=== PATIENT | female | born 1950 | race Caucasian/White ===

== ENCOUNTER 2017-09-24 18:21 | Inpatient (IN) ==
[2017-09-24] MEDS ORDERED: SODIUM CHLORIDE 0.9% 1,000 ML IV STA (18:45)
[2017-09-24 19:04] LABS: Basophils # 0.1 10*3/uL (0.0-0.2); Basophils % 0.5 % (0.0-0.8); Eosinophils % 0.1 % (0.00-10.9); Hematocrit 45.5 VOL% (35.7-47.0); Hemoglobin 15.6 GM/DL (12.0-16.0); Immature Granulocytes % 0.3 %; Immature Granulocytes Absolute 0.03 #; Lymphocytes # 0.8 10*3/uL (1.4-4.0); Lymphocytes % 7.8 % (21.3-54.2); Mean Corpuscular HGB Conc 34.3 GM/DL (32-36); Mean Corpuscular Hemoglobin 30 PG (27-34); Mean Corpuscular Volume 86.2 FL (87-102); Mean Platelet Volume 12.3 FL (9.6-12.0); Monocytes % 9.8 % (1.7-12.7); Neutrophils # 8.1 10*3/uL (1.4-7.4); Neutrophils % 81.5 % (38.7-73.9); Platelet Count 156 T/CUMM (130-400); Red Blood Count 5.28 MC/CUMM (3.8-5.5); Red Cell Distribution Width 13.2 % (9.3-17.3)
[2017-09-24 19:13] LABS: PT Patient Result 10.9 SECS; Partial Thromboplastin Time 23.8 SECS (0-40)
[2017-09-24 19:31] LABS: Ammonia < 10 UMOL/L (11-32)
[2017-09-24 19:41] LABS: Alanine Aminotransferase 38 U/L (13-56); Alkaline Phosphatase 118 U/L (45-117); Aspartate Amino Transferase 68 U/L (0-37); Calcium 9.1 MG/DL (8.5-10.1)
[2017-09-24 19:42] LABS: Blood Urea Nitrogen 15 MG/DL (7-18); CKMB % 2.2 %; Glucose 187 MG/DL (74-106); Osmolality,Calculated 284.4 MOS/KG (273-304); Potassium 3.1 MMOL/L (3.5-5.1); Sodium 140 MMOL/L (136-145); Total Protein 7.6 G/DL (6.4-8.3)
[2017-09-24 19:45] LABS: Acetaminophen < 2.0 UG/ML (10-30); Salicylate < 2.8 MG/DL (2.8-20)
[2017-09-24] MEDS ORDERED: NITROGLYCERIN 2% OINT 1 INCH/GM PACK TOP STA (19:49)
[2017-09-24] MEDS ORDERED: NITROGLYCERIN 2% OINT 1 INCH/GM PACK TOP ONE (19:55)
[2017-09-24] MEDS ORDERED: hydrALAZINE 20 MG/1 ML VIAL ONE (20:35)
[2017-09-24 20:36] LABS: Platelet Estimate Normal
[2017-09-24] MEDS ORDERED: hydrALAZINE 20 MG/1 ML VIAL IV STA (20:36)
[2017-09-24] MEDS ORDERED: METOCLOPRAMIDE 10 MG/2 ML VIAL IV STA (20:43)
[2017-09-24] MEDS ORDERED: ONDANSETRON 4 MG/2 ML VIAL IV STA (20:43)
[2017-09-24] MEDS ORDERED: ONDANSETRON 4 MG/2 ML VIAL ONE (20:44)
[2017-09-24] MEDS ORDERED: METOCLOPRAMIDE 10 MG/2 ML VIAL ONE (20:45)
[2017-09-24] MEDS ORDERED: PANTOPRAZOLE 40 MG VIAL IV STA (20:51)
[2017-09-24] MEDS ORDERED: LORazepam 2 MG/1 ML VIAL ONE (21:01)
[2017-09-24] MEDS ORDERED: LORazepam 2 MG/1 ML VIAL IV STA (21:12)
[2017-09-24 21:13] LABS: Apearance,Urine Slightly Hazy (Clear); Bacteria,Urine Many /HPF (Few); Bilirubin,Urine Negative (Negative); Blood, Urine Moderate mg/dL (Negative); Glucose,Urine (UA) 50 mg/dL (Negative); Hyaline Casts,Urine 4 /LPF (0-3); Ketones,Urine 80 mg/dL (Negative); Mucus,Urine Occasional /LPF (Occasional); Nitrite,Urine Negative (Negative); Protein,Urine >=500 MG/DL; Urine Color Amber (Yellow); Urine Specific Gravity 1.027 (1.001-1.035); Urine Urobilinogen < 2.0 EU/DL (0.2-1.0)
[2017-09-24 21:17] LABS: Barbiturates Screen,Urine Negative (Negative); Benzodiazepines Screen,Urine Negative (Negative); Cannabinoid Screen,Urine Negative (Negative); Opiate Screen,Urine Negative (Negative); Phencyclidine Screen,Urine Negative (Negative)
[2017-09-24] MEDS ORDERED: PANTOPRAZOLE 40 MG VIAL IV ONE (21:19)
[2017-09-24] MEDS ORDERED: ETOMIDATE 20 MG/10 ML VIAL IV ONE ×2 (21:30→23:56)
[2017-09-24] MEDS ORDERED: VECURONIUM 10 MG VIAL IV ONE ×2 (21:51→21:53)
[2017-09-24] MEDS ORDERED: PROPOFOL 1,000 MG/100 ML BOTTLE IV ONE (21:51)
[2017-09-24] MEDS ORDERED: PROPOFOL 1,000 MG/100 ML BOTTLE IV SCH ×2 (22:00→23:45)
[2017-09-24] MEDS ORDERED: niCARdipine INJ 25 MG in SODIUM CHLORIDE 0.9% 240 ML IV SCH (22:00)
[2017-09-24] MEDS ORDERED: THIAMINE INJ 100 MG, FOLIC ACID INJ 1 MG, MULTIVITAMIN INJ 10 ML in DEXTROSE 5% NACL 0.... IV SCH (22:00)
[2017-09-24] MEDS ORDERED: METOPROLOL TARTRATE 5 MG/5 ML VIAL IV ONE ×2 (22:06→23:18)
[2017-09-24] MEDS: METOPROLOL TARTRATE 5 MG/5 ML VIAL IV SCH ×2 (22:07→23:18)
[2017-09-24 22:44] LABS: ABG Base Excess -10.8 MMOL/L (-2.5-2.5); ABG HCO3 16.2 MMOL/L (20-26); ABG Oxygen Saturation 98.3 % (95-100); ABG PCO2 52.2 MM HG (35-48); ABG TCO2 16.7 MMOL/L (23-27); Allen Test Positive; Pt O2 Delivery Device Ventilator
[2017-09-24 22:46] LABS: ABG PH 7.168 (7.35-7.45)
[2017-09-24 22:48] LABS: Glucose Heart Surgery 426 MG/DL (74-106); Hematocrit Heart Surgery 48.8 PERCENT (37-47); Hemoglobin Heart Surgery 15.9 G/DL (12.0-16.0); Potassium Heart/CVR 2.9 MMOL/L (3.5-5.1)
[2017-09-24] MEDS ORDERED: HEPARIN DRIP 25,000 UNITS/500 ML PREMIX IV SCH (23:00)
[2017-09-24 23:28] LABS: INR 1.1; PT Patient Result 11.3 SECS; Partial Thromboplastin Time 26.9 SECS (0-40)
[2017-09-24 23:48] LABS: CKMB % 3.5 %
[2017-09-24 23:53] LABS: Troponin I Only 11.7 NG/ML (0.00-0.045)
[2017-09-24] MEDS ORDERED: SUCCINYLCHOLINE 200 MG/10 ML VIAL ONE (23:56)
[2017-09-25] MEDS ORDERED: HEPARIN 5,000 UNIT/1 ML VIAL IV ONE (00:03)
[2017-09-25] MEDS ORDERED: SODIUM CHLORIDE 0.9% 1,000 ML IV ONE (00:14)
[2017-09-25] MEDS: POTASSIUM CHLORIDE RIDER 10 MEQ in PREMIX 1 EACH IV PRN (00:15)
[2017-09-25] MEDS: LEVOFLOXACIN INJ 750 MG in PREMIX 1 EACH IV SCH ×2 (00:20→23:47)
[2017-09-25] MEDS ORDERED: DEXTROSE 50% 25 GM/50 ML VIAL IV PRN (00:22)
[2017-09-25] MEDS ORDERED: GLUCAGON 1 MG VIAL IM PRN (00:22)
[2017-09-25] MEDS ORDERED: MORPHINE 2 MG/1 ML SYRINGE ONE (00:22)
[2017-09-25] MEDS: MORPHINE 2 MG/1 ML SYRINGE IV PRN (00:28)
[2017-09-25] MEDS: PANTOPRAZOLE 40 MG VIAL IV SCH ×3 (00:29→21:26)
[2017-09-25] MEDS: INSULIN REGULAR 100 UNIT/ML SUBCUT SCH ×7 (00:30→22:32)
[2017-09-25] MEDS: DILTIAZEM INJ 100 MG in SODIUM CHLORIDE 0.9% 100 ML IV SCH ×2 (01:08→23:38)
[2017-09-25] MEDS: METOPROLOL TARTRATE 5 MG/5 ML VIAL IV SCH ×2 (01:08→01:39)
[2017-09-25] MEDS ORDERED: SODIUM CHLORIDE 0.9% 500 ML IV SCH (01:40)
[2017-09-25] MEDS ORDERED: DOPamine 800 MG/250 ML PREMIX IV SCH (02:00)
[2017-09-25] MEDS ORDERED: POTASSIUM CHLORIDE 20 MEQ TABLET PO ONE (02:09)
[2017-09-25 02:12] LABS: ABG Base Excess -4.6 MMOL/L (-2.5-2.5); ABG HCO3 20.7 MMOL/L (20-26); ABG Oxygen Saturation 99.8 % (95-100); ABG TCO2 17.8 MMOL/L (23-27)
[2017-09-25] MEDS ORDERED: NOREPINEPHRINE 4 MG/4 ML VIAL IV ONE (02:19)
[2017-09-25] MEDS: MIDAZOLAM 100 MG in SODIUM CHLORIDE 0.9% 80 ML IV SCH ×2 (02:28→13:09)
[2017-09-25 02:49] LABS: Basophils % 0.2 % (0.0-0.8); Hematocrit 43.3 VOL% (35.7-47.0); Hemoglobin 14.4 GM/DL (12.0-16.0); Immature Granulocytes % 0.7 %; Immature Granulocytes Absolute 0.12 #; Lymphocytes # 2.1 10*3/uL (1.4-4.0); Lymphocytes % 11.7 % (21.3-54.2); Mean Corpuscular HGB Conc 33.3 GM/DL (32-36); Mean Corpuscular Hemoglobin 30 PG (27-34); Mean Corpuscular Volume 89.1 FL (87-102); Mean Platelet Volume 12.3 FL (9.6-12.0); Monocytes # 1.9 10*3/uL (0.11-0.8); Monocytes % 10.5 % (1.7-12.7); Neutrophils # 13.9 10*3/uL (1.4-7.4); Neutrophils % 76.9 % (38.7-73.9); Platelet Count 195 T/CUMM (130-400); Red Blood Count 4.86 MC/CUMM (3.8-5.5); Red Cell Distribution Width 13.4 % (9.3-17.3); White Blood Count 18.1 T/CUMM (4-12)
[2017-09-25 03:05] LABS: Lactic Acid 7.1 MMOL/L (0.4-2.0)
[2017-09-25] MEDS: SODIUM CHLORIDE 0.9% 1,000 ML IV SCH ×3 (03:07→18:37)
[2017-09-25 03:28] LABS: ABG Base Excess -2.5 MMOL/L (-2.5-2.5); ABG HCO3 21.4 MMOL/L (20-26); ABG Oxygen Saturation 95.9 % (95-100); ABG PCO2 34.5 MM HG (35-48); ABG PO2 79.8 MM HG (80-95); ABG TCO2 22.4 MMOL/L (23-27); Allen Test Positive; Pt O2 Delivery Device Ventilator
[2017-09-25 03:38] LABS: Calcium 8.5 MG/DL (8.5-10.1); Magnesium 1.9 MG/DL (1.8-2.4); Osmolality,Calculated 292.1 MOS/KG (273-304); Potassium 3.6 MMOL/L (3.5-5.1)
[2017-09-25 03:40] LABS: CKMB % 3.2 %
[2017-09-25 03:42] LABS: Troponin I Only 19.5 NG/ML (0.00-0.045)
[2017-09-25] MEDS: fentaNYL INJ 1,250 MCG in SODIUM CHLORIDE 0.9% 225 ML IV SCH (04:01)
[2017-09-25 07:40] LABS: CKMB % 2.5 %
[2017-09-25 07:50] LABS: Troponin I Only 24.6 NG/ML (0.00-0.045)
[2017-09-25 09:09] LABS: Risk Ratio 6.19; VLDL CHOLESTEROL 40.6 MG/DL
[2017-09-25] MEDS: NOREPINEPHRINE 8 MG in SODIUM CHLORIDE 0.9% 242 ML IV SCH (09:32)
[2017-09-25 10:12] LABS: Albumin 2.9 G/DL (3.4-5.0); Bilirubin,Total 0.4 MG/DL (0.2-1.0); Calcium 8.1 MG/DL (8.5-10.1); Osmolality,Calculated 290.7 MOS/KG (273-304); Potassium 2.8 MMOL/L (3.5-5.1); Total Protein 6.2 G/DL (6.4-8.3)
[2017-09-25] MEDS: ASPIRIN CHEW 81 MG TABLET PO SCH (12:18)
[2017-09-26] MEDS: NOREPINEPHRINE 8 MG in SODIUM CHLORIDE 0.9% 242 ML IV SCH (01:31)
[2017-09-26] MEDS: INSULIN REGULAR 100 UNIT/ML SUBCUT SCH ×5 (02:12→18:21)
[2017-09-26] MEDS: SODIUM CHLORIDE 0.9% 1,000 ML IV SCH (02:16)
[2017-09-26] MEDS: MIDAZOLAM 100 MG in SODIUM CHLORIDE 0.9% 80 ML IV SCH ×2 (02:17→17:59)
[2017-09-26 03:43] LABS: ABG Base Excess -3.9 MMOL/L (-2.5-2.5); ABG HCO3 19.6 MMOL/L (20-26); ABG Oxygen Saturation 97.8 % (95-100); ABG PCO2 31.7 MM HG (35-48); ABG PH 7.409 (7.35-7.45); ABG PO2 105.3 MM HG (80-95); ABG TCO2 20.6 MMOL/L (23-27); Allen Test Positive; Pt O2 Delivery Device Ventilator
[2017-09-26 05:40] LABS: Basophils % 0.2 % (0.0-0.8); Eosinophils % 0.1 % (0.00-10.9); Hematocrit 40.8 VOL% (35.7-47.0); Hemoglobin 12.9 GM/DL (12.0-16.0); Immature Granulocytes % 0.4 %; Immature Granulocytes Absolute 0.06 #; Lymphocytes # 3.9 10*3/uL (1.4-4.0); Lymphocytes % 28.3 % (21.3-54.2); Mean Corpuscular HGB Conc 31.6 GM/DL (32-36); Mean Corpuscular Hemoglobin 30 PG (27-34); Mean Corpuscular Volume 93.6 FL (87-102); Mean Platelet Volume 12.9 FL (9.6-12.0); Monocytes # 1.5 10*3/uL (0.11-0.8); Monocytes % 10.6 % (1.7-12.7); NRBC # 0.02 10*3/uL; Neutrophils # 8.4 10*3/uL (1.4-7.4); Neutrophils % 60.4 % (38.7-73.9); Platelet Count 153 T/CUMM (130-400); Red Blood Count 4.36 MC/CUMM (3.8-5.5); Red Cell Distribution Width 14.4 % (9.3-17.3); White Blood Count 13.9 T/CUMM (4-12)
[2017-09-26 05:52] LABS: Ovalocytes 1+; Platelet Estimate Normal
[2017-09-26 06:21] LABS: Albumin 1.9 G/DL (3.4-5.0); Bilirubin,Total 1.2 MG/DL (0.2-1.0); Calcium 6.5 MG/DL (8.5-10.1); Osmolality,Calculated 292.3 MOS/KG (273-304); Total Protein 4.5 G/DL (6.4-8.3)
[2017-09-26 06:32] LABS: Potassium 2.5 MMOL/L (3.5-5.1)
[2017-09-26] MEDS ORDERED: POTASSIUM CHLORIDE 20 MEQ TABLET PO ONE ×2 (06:37→09:11)
[2017-09-26] MEDS ORDERED: CALCIUM GLUCONATE 2,000 MG in SODIUM CHLORIDE 0.9% 100 ML IV ONE (06:38)
[2017-09-26] MEDS: fentaNYL INJ 1,250 MCG in SODIUM CHLORIDE 0.9% 225 ML IV SCH ×2 (08:45→17:58)
[2017-09-26] MEDS: ASPIRIN CHEW 81 MG TABLET PO SCH (09:17)
[2017-09-26] MEDS: PANTOPRAZOLE 40 MG VIAL IV SCH ×2 (09:17→21:19)
[2017-09-26] MEDS: DEXTROSE 5% 1,000 ML IV SCH ×2 (09:33→21:19)
[2017-09-26 13:44] LABS: Free T4 (Free Thyroxine) 1.03 NG/DL (0.76-1.46); Thyroid Stimulating Hormone 0.337 uIU/ml (0.358-3.74)
[2017-09-26 21:01] LABS: CKMB % 1.3 %; Troponin I Only 7.44 NG/ML (0.00-0.045)
[2017-09-27] MEDS: DILTIAZEM INJ 100 MG in SODIUM CHLORIDE 0.9% 100 ML IV SCH (00:24)
[2017-09-27] MEDS: LEVOFLOXACIN INJ 750 MG in PREMIX 1 EACH IV SCH (00:33)
[2017-09-27] MEDS: INSULIN REGULAR 100 UNIT/ML SUBCUT SCH ×4 (00:39→18:56)
[2017-09-27] MEDS: cefTRIAXone 2,000 MG in SYRINGE 1 EACH IV SCH (02:23)
[2017-09-27] MEDS: MIDAZOLAM 100 MG in SODIUM CHLORIDE 0.9% 80 ML IV SCH (02:24)
[2017-09-27] MEDS: NOREPINEPHRINE 8 MG in SODIUM CHLORIDE 0.9% 242 ML IV SCH (02:24)
[2017-09-27 03:14] LABS: Allen Test Positive; Pt O2 Delivery Device Ventilator
[2017-09-27 03:15] LABS: ABG Base Excess -0.9 MMOL/L (-2.5-2.5); ABG HCO3 23.1 MMOL/L (20-26); ABG Oxygen Saturation 98.3 % (95-100); ABG PCO2 36.5 MM HG (35-48); ABG PO2 117.6 MM HG (80-95); ABG TCO2 24.3 MMOL/L (23-27)
[2017-09-27] MEDS: fentaNYL INJ 1,250 MCG in SODIUM CHLORIDE 0.9% 225 ML IV SCH (03:21)
[2017-09-27 05:20] LABS: Bilirubin,Total 0.4 MG/DL (0.2-1.0); Calcium 7.4 MG/DL (8.5-10.1); Osmolality,Calculated 280.4 MOS/KG (273-304); Potassium 3.4 MMOL/L (3.5-5.1); Total Protein 4.6 G/DL (6.4-8.3)
[2017-09-27] MEDS: DEXTROSE 5% 1,000 ML IV SCH ×3 (05:35→15:55)
[2017-09-27] MEDS: MORPHINE 2 MG/1 ML SYRINGE IV PRN ×2 (06:22→16:19)
[2017-09-27 08:35] LABS: Pt O2 Delivery Device Ventilator
[2017-09-27 08:36] LABS: ABG HCO3 24.4 MMOL/L (20-26); ABG Oxygen Saturation 98.9 % (95-100); ABG PCO2 39.7 MM HG (35-48); ABG PH 7.401 (7.35-7.45); ABG TCO2 21.9 MMOL/L (23-27)
[2017-09-27] MEDS: ASPIRIN CHEW 81 MG TABLET PO SCH (08:49)
[2017-09-27] MEDS: PANTOPRAZOLE 40 MG VIAL IV SCH ×2 (08:49→21:35)
[2017-09-27] MEDS: HALOPERIDOL 5 MG/ML AMP IV SCH ×2 (08:50→21:33)
[2017-09-27] MEDS ORDERED: POTASSIUM CHLORIDE 20 MEQ TABLET PO ONE (08:51)
[2017-09-27 10:36] LABS: Pt O2 Delivery Device Ventilator
[2017-09-27 10:38] LABS: ABG HCO3 23.6 MMOL/L (20-26); ABG Oxygen Saturation 98.8 % (95-100); ABG PCO2 40.5 MM HG (35-48); ABG TCO2 21.2 MMOL/L (23-27)
[2017-09-28] MEDS: MORPHINE 2 MG/1 ML SYRINGE IV PRN (00:30)
[2017-09-28] MEDS: DILTIAZEM INJ 100 MG in SODIUM CHLORIDE 0.9% 100 ML IV SCH ×2 (01:01→22:59)
[2017-09-28] MEDS: INSULIN REGULAR 100 UNIT/ML SUBCUT SCH ×4 (01:01→17:15)
[2017-09-28] MEDS: LEVOFLOXACIN INJ 750 MG in PREMIX 1 EACH IV SCH (01:06)
[2017-09-28] MEDS: DEXTROSE 5% 1,000 ML IV SCH ×5 (01:13→22:59)
[2017-09-28] MEDS: cefTRIAXone 2,000 MG in SYRINGE 1 EACH IV SCH (01:36)
[2017-09-28] MEDS: MIDAZOLAM 100 MG in SODIUM CHLORIDE 0.9% 80 ML IV SCH ×2 (03:53→07:26)
[2017-09-28] MEDS: fentaNYL INJ 1,250 MCG in SODIUM CHLORIDE 0.9% 225 ML IV SCH ×2 (03:54→07:26)
[2017-09-28] MEDS: NOREPINEPHRINE 8 MG in SODIUM CHLORIDE 0.9% 242 ML IV SCH (03:54)
[2017-09-28 04:15] LABS: ABG Base Excess 1.4 MMOL/L (-2.5-2.5); ABG HCO3 26.3 MMOL/L (20-26); ABG Oxygen Saturation 98.1 % (95-100); ABG PCO2 42.6 MM HG (35-48); ABG PH 7.408 (7.35-7.45); ABG TCO2 27.6 MMOL/L (23-27); Allen Test Positive; Pt O2 Delivery Device Ventilator
[2017-09-28 05:06] LABS: Calcium 7.9 MG/DL (8.5-10.1); Osmolality,Calculated 281.1 MOS/KG (273-304); Potassium 3.7 MMOL/L (3.5-5.1)
[2017-09-28] MEDS: ASPIRIN CHEW 81 MG TABLET PO SCH (08:08)
[2017-09-28] MEDS: PANTOPRAZOLE 40 MG VIAL IV SCH ×2 (08:10→20:14)
[2017-09-28] MEDS: HALOPERIDOL 5 MG/ML AMP IV SCH ×2 (08:12→20:13)
[2017-09-28] MEDS: METOPROLOL TARTRATE 25 MG TABLET PO SCH ×2 (17:02→20:14)
[2017-09-29] MEDS: INSULIN REGULAR 100 UNIT/ML SUBCUT SCH ×4 (00:10→18:23)
[2017-09-29] MEDS: LEVOFLOXACIN INJ 750 MG in PREMIX 1 EACH IV SCH (00:10)
[2017-09-29] MEDS: cefTRIAXone 2,000 MG in SYRINGE 1 EACH IV SCH (02:33)
[2017-09-29] MEDS: MIDAZOLAM 100 MG in SODIUM CHLORIDE 0.9% 80 ML IV SCH (02:34)
[2017-09-29] MEDS: NOREPINEPHRINE 8 MG in SODIUM CHLORIDE 0.9% 242 ML IV SCH (02:35)
[2017-09-29 03:31] LABS: Allen Test Positive; Pt O2 Delivery Device Ventilator
[2017-09-29 03:32] LABS: ABG Base Excess 3.8 MMOL/L (-2.5-2.5); ABG HCO3 27.9 MMOL/L (20-26); ABG Oxygen Saturation 97.3 % (95-100); ABG PCO2 39.9 MM HG (35-48); ABG PH 7.462 (7.35-7.45); ABG TCO2 29.1 MMOL/L (23-27)
[2017-09-29] MEDS: fentaNYL INJ 1,250 MCG in SODIUM CHLORIDE 0.9% 225 ML IV SCH (04:02)
[2017-09-29 04:05] LABS: Basophils % 0.3 % (0.0-0.8); Eosinophils % 0.7 % (0.00-10.9); Hematocrit 31.7 VOL% (35.7-47.0); Hemoglobin 10.6 GM/DL (12.0-16.0); Immature Granulocytes % 0.3 %; Immature Granulocytes Absolute 0.02 #; Lymphocytes % 32.8 % (21.3-54.2); Mean Corpuscular HGB Conc 33.4 GM/DL (32-36); Mean Corpuscular Hemoglobin 29 PG (27-34); Mean Corpuscular Volume 87.3 FL (87-102); Mean Platelet Volume 13.4 FL (9.6-12.0); Monocytes # 0.6 10*3/uL (0.11-0.8); Monocytes % 10.1 % (1.7-12.7); Neutrophils # 3.3 10*3/uL (1.4-7.4); Neutrophils % 55.8 % (38.7-73.9); Platelet Count 99 T/CUMM (130-400); Red Blood Count 3.63 MC/CUMM (3.8-5.5); Red Cell Distribution Width 13.8 % (9.3-17.3)
[2017-09-29 04:47] LABS: Calcium 7.8 MG/DL (8.5-10.1); Magnesium 1.5 MG/DL (1.8-2.4); Osmolality,Calculated 285.8 MOS/KG (273-304); Phosphorous 2.3 MG/DL (2.5-4.9); Potassium 3.4 MMOL/L (3.5-5.1); Prealbumin 8.7 MG/DL (20-40)
[2017-09-29 04:50] LABS: Eosinophils 1 % (0-10); Hypochromasia 1+; Lymphocytes 28 % (20-55); Platelet Estimate Decreased; Segmented Neutrophils 65 % (50-85); Total Cells Counted 100
[2017-09-29] MEDS: DEXTROSE 5% 1,000 ML IV SCH ×3 (06:28→19:07)
[2017-09-29] MEDS: PANTOPRAZOLE 40 MG VIAL IV SCH ×2 (08:03→20:55)
[2017-09-29] MEDS: ASPIRIN CHEW 81 MG TABLET PO SCH (08:04)
[2017-09-29] MEDS: METOPROLOL TARTRATE 25 MG TABLET PO SCH ×2 (08:04→20:57)
[2017-09-29] MEDS: HALOPERIDOL 5 MG/ML AMP IV SCH ×2 (08:04→20:53)
[2017-09-29] MEDS: POTASSIUM CHLORIDE RIDER 10 MEQ in PREMIX 1 EACH IV PRN ×3 (08:25→12:16)
[2017-09-29] MEDS ORDERED: MAGNESIUM SULF RIDER 4 GM in PREMIX 1 EACH IV ONE (08:42)
[2017-09-29] MEDS ORDERED: POTASSIUM CHLORIDE RIDER 10 MEQ in PREMIX 1 EACH IV SCH (09:00)
[2017-09-29] MEDS: POTASSIUM CHLORIDE 20 MEQ TABLET PO SCH (09:22)
[2017-09-29] MEDS: oxyCODONE/ACETAMINOPHEN 5-325 MG TABLET PO SCH ×2 (09:22→20:57)
[2017-09-29] MEDS: LORazepam 2 MG/1 ML VIAL IV PRN ×3 (09:24→21:02)
[2017-09-29] MEDS ORDERED: MAGNESIUM SULF RIDER 4 GM in PREMIX 1 EACH IV PRN (11:40)
[2017-09-29] MEDS ORDERED: MAGNESIUM SULF RIDER 2 GM in PREMIX 1 EACH IV PRN (11:40)
[2017-09-29] MEDS: PROPOFOL 1,000 MG/100 ML BOTTLE IV SCH ×2 (19:10→23:00)
[2017-09-30] MEDS: INSULIN REGULAR 100 UNIT/ML SUBCUT SCH ×5 (00:11→23:46)
[2017-09-30] MEDS: LEVOFLOXACIN INJ 750 MG in PREMIX 1 EACH IV SCH ×2 (00:12→23:26)
[2017-09-30] MEDS: DEXTROSE 5% 1,000 ML IV SCH ×5 (01:16→23:26)
[2017-09-30 09:54] LABS: Alanine Aminotransferase 56 U/L (13-56); Albumin 1.9 G/DL (3.4-5.0); Alkaline Phosphatase 70 U/L (45-117); Aspartate Amino Transferase 52 U/L (0-37); Bilirubin,Total < 0.39 MG/DL (0.2-1.0); Blood Urea Nitrogen 9 MG/DL (7-18); Calcium 7.8 MG/DL (8.5-10.1); Glucose 142 MG/DL (74-106); Potassium 3.5 MMOL/L (3.5-5.1); Sodium 143 MMOL/L (136-145); Total Protein 4.6 G/DL (6.4-8.3)
[2017-09-30 09:55] LABS: Alanine Aminotransferase 58 U/L (13-56); Albumin 1.9 G/DL (3.4-5.0); Alkaline Phosphatase 74 U/L (45-117); Aspartate Amino Transferase 54 U/L (0-37); Bilirubin,Direct < 0.100 MG/DL (0.0-0.20); Bilirubin,Indirect 0.3 MG/DL (0.0-1.0); Bilirubin,Total < 0.39 MG/DL (0.2-1.0); Total Protein 4.6 G/DL (6.4-8.3)
[2017-09-30 09:55] LABS: ABG Base Excess 5.6 MMOL/L (-2.5-2.5); ABG HCO3 30.5 MMOL/L (20-26); ABG Oxygen Saturation 96.6 % (95-100); ABG PCO2 45.9 MM HG (35-48); ABG PH 7.441 (7.35-7.45); ABG PO2 86.7 MM HG (80-95)
[2017-09-30 10:02] LABS: Basophils % 0.3 % (0.0-0.8); Eosinophils # 0.3 10*3/uL (0.0-0.87); Eosinophils % 3.4 % (0.00-10.9); Hematocrit 31.3 VOL% (35.7-47.0); Hemoglobin 10.7 GM/DL (12.0-16.0); Immature Granulocytes % 0.5 %; Immature Granulocytes Absolute 0.04 #; Lymphocytes # 2.4 10*3/uL (1.4-4.0); Lymphocytes % 27.6 % (21.3-54.2); Mean Corpuscular HGB Conc 34.2 GM/DL (32-36); Mean Corpuscular Hemoglobin 30 PG (27-34); Mean Corpuscular Volume 86.5 FL (87-102); Mean Platelet Volume 13.2 FL (9.6-12.0); Monocytes # 0.9 10*3/uL (0.11-0.8); Monocytes % 10.1 % (1.7-12.7); Neutrophils % 58.1 % (38.7-73.9); Platelet Count 106 T/CUMM (130-400); Red Blood Count 3.62 MC/CUMM (3.8-5.5); Red Cell Distribution Width 13.6 % (9.3-17.3); White Blood Count 8.6 T/CUMM (4-12)
[2017-09-30 10:14] LABS: PT Patient Result 10.7 SECS; Partial Thromboplastin Time 31.1 SECS (0-40)
[2017-09-30] MEDS: cefTRIAXone 2,000 MG in SYRINGE 1 EACH IV SCH (10:17)
[2017-09-30] MEDS: ASPIRIN CHEW 81 MG TABLET PO SCH (10:18)
[2017-09-30] MEDS: METOPROLOL TARTRATE 25 MG TABLET PO SCH ×2 (10:19→21:29)
[2017-09-30] MEDS: POTASSIUM CHLORIDE 20 MEQ TABLET PO SCH (10:19)
[2017-09-30] MEDS: HALOPERIDOL 5 MG/ML AMP IV SCH ×2 (10:19→21:28)
[2017-09-30] MEDS: oxyCODONE/ACETAMINOPHEN 5-325 MG TABLET PO SCH ×2 (10:19→21:28)
[2017-09-30] MEDS: PANTOPRAZOLE 40 MG VIAL IV SCH ×2 (10:37→21:28)
[2017-09-30 10:56] LABS: Eosinophils 2 % (0-10); Lymphocytes 34 % (20-55); Platelet Estimate Decreased; Segmented Neutrophils 59 % (50-85); Total Cells Counted 100
[2017-09-30 10:57] LABS: Hypochromasia 1+; Microcytosis 1+
[2017-09-30] MEDS: PROPOFOL 1,000 MG/100 ML BOTTLE IV SCH ×2 (16:01→21:27)
[2017-10-01] MEDS: cefTRIAXone 2,000 MG in SYRINGE 1 EACH IV SCH (02:28)
[2017-10-01 02:59] LABS: Allen Test Positive; Pt O2 Delivery Device Ventilator
[2017-10-01 03:00] LABS: ABG Base Excess 7.3 MMOL/L (-2.5-2.5); ABG HCO3 31.1 MMOL/L (20-26); ABG Oxygen Saturation 96.7 % (95-100); ABG PH 7.498 (7.35-7.45); ABG PO2 88.1 MM HG (80-95); ABG TCO2 32.4 MMOL/L (23-27)
[2017-10-01 03:52] LABS: Basophils % 0.3 % (0.0-0.8); Eosinophils # 0.4 10*3/uL (0.0-0.87); Eosinophils % 5.4 % (0.00-10.9); Hematocrit 32.5 VOL% (35.7-47.0); Hemoglobin 10.8 GM/DL (12.0-16.0); Immature Granulocytes % 0.5 %; Immature Granulocytes Absolute 0.04 #; Lymphocytes # 2.2 10*3/uL (1.4-4.0); Lymphocytes % 28.6 % (21.3-54.2); Mean Corpuscular HGB Conc 33.2 GM/DL (32-36); Mean Corpuscular Hemoglobin 29 PG (27-34); Mean Corpuscular Volume 87.8 FL (87-102); Mean Platelet Volume 13.7 FL (9.6-12.0); Monocytes # 0.8 10*3/uL (0.11-0.8); Monocytes % 9.9 % (1.7-12.7); Neutrophils # 4.3 10*3/uL (1.4-7.4); Neutrophils % 55.3 % (38.7-73.9); Platelet Count 107 T/CUMM (130-400); Red Cell Distribution Width 13.4 % (9.3-17.3); White Blood Count 7.8 T/CUMM (4-12)
[2017-10-01 04:15] LABS: Calcium 7.4 MG/DL (8.5-10.1); Magnesium 1.7 MG/DL (1.8-2.4); Osmolality,Calculated 279.4 MOS/KG (273-304); Potassium 4.4 MMOL/L (3.5-5.1)
[2017-10-01 04:37] LABS: Eosinophils 5 % (0-10); Lymphocytes 32 % (20-55); Segmented Neutrophils 57 % (50-85); Total Cells Counted 100
[2017-10-01 04:38] LABS: Platelet Estimate Adequate
[2017-10-01] MEDS: INSULIN REGULAR 100 UNIT/ML SUBCUT SCH ×3 (05:14→18:13)
[2017-10-01] MEDS: PROPOFOL 1,000 MG/100 ML BOTTLE IV SCH ×3 (05:16→17:32)
[2017-10-01] MEDS: LORazepam 2 MG/1 ML VIAL IV PRN (08:20)
[2017-10-01] MEDS: METOPROLOL TARTRATE 25 MG TABLET PO SCH ×2 (08:42→21:54)
[2017-10-01] MEDS: POTASSIUM CHLORIDE 20 MEQ TABLET PO SCH (08:42)
[2017-10-01] MEDS: oxyCODONE/ACETAMINOPHEN 5-325 MG TABLET PO SCH ×2 (08:42→21:54)
[2017-10-01] MEDS: HALOPERIDOL 5 MG/ML AMP IV SCH ×2 (08:43→21:55)
[2017-10-01] MEDS: ASPIRIN CHEW 81 MG TABLET PO SCH (08:43)
[2017-10-01] MEDS: PANTOPRAZOLE 40 MG VIAL IV SCH ×2 (08:48→21:55)
[2017-10-01] MEDS: DILTIAZEM INJ 100 MG in SODIUM CHLORIDE 0.9% 100 ML IV SCH ×2 (09:41→15:14)
[2017-10-01 10:13] LABS: ABG Base Excess 6.1 MMOL/L (-2.5-2.5); ABG HCO3 29.9 MMOL/L (20-26); ABG Oxygen Saturation 94.6 % (95-100); ABG PCO2 41.3 MM HG (35-48); ABG PH 7.473 (7.35-7.45); ABG PO2 70.6 MM HG (80-95); ABG TCO2 26.7 MMOL/L (23-27); Allen Test Positive
[2017-10-01] MEDS: DEXTROSE 5% 1,000 ML IV SCH (10:57)
[2017-10-01] MEDS: hydrALAZINE 20 MG/1 ML VIAL IV PRN (11:57)
[2017-10-01] MEDS: MORPHINE 2 MG/1 ML SYRINGE IV PRN (12:37)
[2017-10-01] MEDS: ACETAMINOPHEN 325 MG/10.15 ML UDCUP PO PRN (14:59)
[2017-10-02] MEDS: LEVOFLOXACIN INJ 750 MG in PREMIX 1 EACH IV SCH ×2 (00:22→23:57)
[2017-10-02] MEDS: INSULIN REGULAR 100 UNIT/ML SUBCUT SCH ×5 (00:23→23:56)
[2017-10-02] MEDS: DILTIAZEM INJ 100 MG in SODIUM CHLORIDE 0.9% 100 ML IV SCH ×3 (00:48→19:22)
[2017-10-02] MEDS: PROPOFOL 1,000 MG/100 ML BOTTLE IV SCH ×3 (01:18→19:20)
[2017-10-02] MEDS: cefTRIAXone 2,000 MG in SYRINGE 1 EACH IV SCH (01:49)
[2017-10-02 03:39] LABS: ABG Base Excess 5.5 MMOL/L (-2.5-2.5); ABG HCO3 29.3 MMOL/L (20-26); ABG Oxygen Saturation 97.6 % (95-100); ABG PCO2 39.4 MM HG (35-48); ABG PO2 91.7 MM HG (80-95); ABG TCO2 26.1 MMOL/L (23-27)
[2017-10-02] MEDS: LORazepam 2 MG/1 ML VIAL IV PRN ×2 (04:33→17:20)
[2017-10-02 05:43] LABS: Basophils % 0.2 % (0.0-0.8); Eosinophils # 0.4 10*3/uL (0.0-0.87); Eosinophils % 3.1 % (0.00-10.9); Hematocrit 33.5 VOL% (35.7-47.0); Hemoglobin 11.1 GM/DL (12.0-16.0); Immature Granulocytes % 0.5 %; Immature Granulocytes Absolute 0.06 #; Lymphocytes # 1.8 10*3/uL (1.4-4.0); Mean Corpuscular HGB Conc 33.1 GM/DL (32-36); Mean Corpuscular Hemoglobin 29 PG (27-34); Mean Corpuscular Volume 86.1 FL (87-102); Mean Platelet Volume 13.2 FL (9.6-12.0); Monocytes # 1.5 10*3/uL (0.11-0.8); Monocytes % 11.6 % (1.7-12.7); Neutrophils # 8.9 10*3/uL (1.4-7.4); Neutrophils % 70.6 % (38.7-73.9); Platelet Count 200 T/CUMM (130-400); Red Blood Count 3.89 MC/CUMM (3.8-5.5); Red Cell Distribution Width 13.8 % (9.3-17.3); White Blood Count 12.6 T/CUMM (4-12)
[2017-10-02 06:14] LABS: Calcium 8.1 MG/DL (8.5-10.1); Osmolality,Calculated 277.5 MOS/KG (273-304); Potassium 4.1 MMOL/L (3.5-5.1)
[2017-10-02] MEDS: hydrALAZINE 20 MG/1 ML VIAL IV PRN ×2 (06:14→19:20)
[2017-10-02 06:18] LABS: Phosphorous 3.8 MG/DL (2.5-4.9); Prealbumin 14.1 MG/DL (20-40)
[2017-10-02] MEDS: MORPHINE 2 MG/1 ML SYRINGE IV PRN ×3 (06:28→19:50)
[2017-10-02 06:58] LABS: Alanine Aminotransferase 44 U/L (13-56); Albumin 2.4 G/DL (3.4-5.0); Alkaline Phosphatase 92 U/L (45-117); Aspartate Amino Transferase 49 U/L (0-37); Bilirubin,Total < 0.39 MG/DL (0.2-1.0); Blood Urea Nitrogen 12 MG/DL (7-18); Glucose 114 MG/DL (74-106); Osmolality,Calculated 277.5 MOS/KG (273-304); Potassium 4.1 MMOL/L (3.5-5.1); Sodium 139 MMOL/L (136-145)
[2017-10-02] MEDS ORDERED: ALBUTEROL/IPRATROPIUM 3 ML NEB RESP TX PRN (08:23)
[2017-10-02] MEDS: ACETAMINOPHEN 325 MG/10.15 ML UDCUP PO PRN (09:39)
[2017-10-02] MEDS: METOPROLOL TARTRATE 25 MG TABLET PO SCH ×2 (09:40→20:46)
[2017-10-02] MEDS: POTASSIUM CHLORIDE 20 MEQ TABLET PO SCH (09:40)
[2017-10-02] MEDS: ASPIRIN CHEW 81 MG TABLET PO SCH (09:40)
[2017-10-02] MEDS: oxyCODONE/ACETAMINOPHEN 5-325 MG TABLET PO SCH ×2 (09:40→20:46)
[2017-10-02] MEDS: HALOPERIDOL 5 MG/ML AMP IV SCH ×2 (09:40→20:47)
[2017-10-02] MEDS: PANTOPRAZOLE 40 MG VIAL IV SCH ×2 (09:43→20:46)
[2017-10-02] MEDS: MONTELUKAST 10 MG TABLET PO SCH (12:00)
[2017-10-02 12:56] LABS: Apearance,Urine CLOUDY (Clear); Bilirubin,Urine Negative (Negative); Blood, Urine Large mg/dL (Negative); Glucose,Urine (UA) Negative (Negative); Hyaline Casts,Urine 2 /LPF (0-3); Ketones,Urine Negative (Negative); Mucus,Urine Occasional /LPF (Occasional); Nitrite,Urine Negative (Negative); Protein,Urine 30 MG/DL; RBC,Urine 503 /HPF (0-4); Squamous Epithelial Cell,Urine Occasional /HPF (0-10); Uric Acid Crystals,Urine Occasional /HPF (<1); Urine Color Yellow (Yellow); Urine Specific Gravity 1.029 (1.001-1.035); Urine Urobilinogen < 2.0 EU/DL (0.2-1.0); WBC,Urine 4 /HPF (0-6)
[2017-10-03] MEDS: PROPOFOL 1,000 MG/100 ML BOTTLE IV SCH ×5 (01:11→23:06)
[2017-10-03] MEDS: cefTRIAXone 2,000 MG in SYRINGE 1 EACH IV SCH (02:03)
[2017-10-03 02:44] LABS: ABG Base Excess 5.6 MMOL/L (-2.5-2.5); ABG HCO3 29.5 MMOL/L (20-26); ABG PCO2 41.1 MM HG (35-48); ABG PH 7.469 (7.35-7.45); ABG TCO2 26.3 MMOL/L (23-27)
[2017-10-03 04:50] LABS: Basophils % 0.3 % (0.0-0.8); Eosinophils # 0.4 10*3/uL (0.0-0.87); Eosinophils % 3.5 % (0.00-10.9); Hematocrit 31.8 VOL% (35.7-47.0); Hemoglobin 10.5 GM/DL (12.0-16.0); Immature Granulocytes % 0.5 %; Immature Granulocytes Absolute 0.06 #; Lymphocytes % 17.7 % (21.3-54.2); Mean Corpuscular Hemoglobin 29 PG (27-34); Mean Corpuscular Volume 87.8 FL (87-102); Mean Platelet Volume 12.6 FL (9.6-12.0); Monocytes # 1.3 10*3/uL (0.11-0.8); Monocytes % 11.7 % (1.7-12.7); Neutrophils # 7.3 10*3/uL (1.4-7.4); Neutrophils % 66.3 % (38.7-73.9); Platelet Count 214 T/CUMM (130-400); Red Blood Count 3.62 MC/CUMM (3.8-5.5)
[2017-10-03 05:21] LABS: Calcium 8.1 MG/DL (8.5-10.1); Osmolality,Calculated 281.4 MOS/KG (273-304); Potassium 4.4 MMOL/L (3.5-5.1)
[2017-10-03] MEDS: DILTIAZEM INJ 100 MG in SODIUM CHLORIDE 0.9% 100 ML IV SCH ×3 (05:33→23:04)
[2017-10-03] MEDS: INSULIN REGULAR 100 UNIT/ML SUBCUT SCH ×3 (05:34→18:25)
[2017-10-03] MEDS: MORPHINE 2 MG/1 ML SYRINGE IV PRN (06:52)
[2017-10-03] MEDS: POTASSIUM CHLORIDE 20 MEQ TABLET PO SCH (09:09)
[2017-10-03] MEDS: oxyCODONE/ACETAMINOPHEN 5-325 MG TABLET PO SCH ×2 (09:09→21:38)
[2017-10-03] MEDS: METOPROLOL TARTRATE 25 MG TABLET PO SCH ×2 (09:09→21:38)
[2017-10-03] MEDS: HALOPERIDOL 5 MG/ML AMP IV SCH ×2 (09:10→21:38)
[2017-10-03] MEDS: MONTELUKAST 10 MG TABLET PO SCH (09:10)
[2017-10-03] MEDS: ASPIRIN CHEW 81 MG TABLET PO SCH (09:10)
[2017-10-03] MEDS: PANTOPRAZOLE 40 MG VIAL IV SCH ×2 (09:10→21:38)
[2017-10-03] MEDS: LEVOFLOXACIN INJ 750 MG in PREMIX 1 EACH IV SCH (23:05)
[2017-10-04] MEDS: INSULIN REGULAR 100 UNIT/ML SUBCUT SCH ×4 (00:45→17:53)
[2017-10-04] MEDS: cefTRIAXone 2,000 MG in SYRINGE 1 EACH IV SCH (02:28)
[2017-10-04 02:42] LABS: ABG Base Excess 8.2 MMOL/L (-2.5-2.5); ABG HCO3 32.3 MMOL/L (20-26); ABG Oxygen Saturation 96.9 % (95-100); ABG PCO2 43.5 MM HG (35-48); ABG PH 7.489 (7.35-7.45); ABG PO2 93.4 MM HG (80-95); ABG TCO2 33.7 MMOL/L (23-27); Pt O2 Delivery Device Ventilator
[2017-10-04] MEDS: PROPOFOL 1,000 MG/100 ML BOTTLE IV SCH ×3 (04:57→20:36)
[2017-10-04 05:01] LABS: Basophils % 0.3 % (0.0-0.8); Eosinophils # 0.4 10*3/uL (0.0-0.87); Eosinophils % 3.9 % (0.00-10.9); Hematocrit 28.1 VOL% (35.7-47.0); Hemoglobin 9.2 GM/DL (12.0-16.0); Immature Granulocytes % 0.5 %; Immature Granulocytes Absolute 0.05 #; Lymphocytes # 1.8 10*3/uL (1.4-4.0); Lymphocytes % 17.9 % (21.3-54.2); Mean Corpuscular HGB Conc 32.7 GM/DL (32-36); Mean Corpuscular Hemoglobin 29 PG (27-34); Mean Corpuscular Volume 88.1 FL (87-102); Monocytes # 0.9 10*3/uL (0.11-0.8); Monocytes % 9.6 % (1.7-12.7); Neutrophils # 6.7 10*3/uL (1.4-7.4); Neutrophils % 67.8 % (38.7-73.9); Platelet Count 193 T/CUMM (130-400); Red Blood Count 3.19 MC/CUMM (3.8-5.5); Red Cell Distribution Width 13.8 % (9.3-17.3); White Blood Count 9.8 T/CUMM (4-12)
[2017-10-04 05:41] LABS: Osmolality,Calculated 278.5 MOS/KG (273-304); Potassium 4.2 MMOL/L (3.5-5.1)
[2017-10-04] MEDS: DILTIAZEM INJ 100 MG in SODIUM CHLORIDE 0.9% 100 ML IV SCH (06:13)
[2017-10-04] MEDS: PANTOPRAZOLE 40 MG VIAL IV SCH ×2 (08:48→20:36)
[2017-10-04] MEDS: POTASSIUM CHLORIDE 20 MEQ TABLET PO SCH (08:49)
[2017-10-04] MEDS: HALOPERIDOL 5 MG/ML AMP IV SCH ×2 (08:49→20:36)
[2017-10-04] MEDS: ASPIRIN CHEW 81 MG TABLET PO SCH (08:49)
[2017-10-04] MEDS: oxyCODONE/ACETAMINOPHEN 5-325 MG TABLET PO SCH ×2 (08:49→20:37)
[2017-10-04] MEDS: METOPROLOL TARTRATE 25 MG TABLET PO SCH ×2 (08:49→20:37)
[2017-10-04] MEDS: MONTELUKAST 10 MG TABLET PO SCH (08:49)
[2017-10-04] MEDS: LORazepam 2 MG/1 ML VIAL IV PRN (08:50)
[2017-10-05] MEDS: DILTIAZEM INJ 100 MG in SODIUM CHLORIDE 0.9% 100 ML IV SCH ×3 (00:12→23:19)
[2017-10-05] MEDS: INSULIN REGULAR 100 UNIT/ML SUBCUT SCH ×4 (00:51→17:18)
[2017-10-05] MEDS: LEVOFLOXACIN INJ 750 MG in PREMIX 1 EACH IV SCH (00:51)
[2017-10-05] MEDS: cefTRIAXone 2,000 MG in SYRINGE 1 EACH IV SCH (02:55)
[2017-10-05 03:03] LABS: ABG Base Excess 5.5 MMOL/L (-2.5-2.5); ABG HCO3 29.3 MMOL/L (20-26); ABG Oxygen Saturation 96.3 % (95-100); ABG PCO2 44.2 MM HG (35-48); ABG PH 7.445 (7.35-7.45); ABG PO2 84.2 MM HG (80-95); Pt O2 Delivery Device Ventilator
[2017-10-05] MEDS: PROPOFOL 1,000 MG/100 ML BOTTLE IV SCH ×4 (03:51→21:01)
[2017-10-05] MEDS: LORazepam 2 MG/1 ML VIAL IV PRN ×2 (04:46→08:32)
[2017-10-05] MEDS: hydrALAZINE 20 MG/1 ML VIAL IV PRN (04:47)
[2017-10-05 05:06] LABS: Basophils % 0.5 % (0.0-0.8); Eosinophils # 0.4 10*3/uL (0.0-0.87); Eosinophils % 4.4 % (0.00-10.9); Hemoglobin 9.5 GM/DL (12.0-16.0); Immature Granulocytes % 0.3 %; Immature Granulocytes Absolute 0.03 #; Lymphocytes # 1.6 10*3/uL (1.4-4.0); Lymphocytes % 17.8 % (21.3-54.2); Mean Corpuscular HGB Conc 32.8 GM/DL (32-36); Mean Corpuscular Hemoglobin 29 PG (27-34); Mean Corpuscular Volume 88.4 FL (87-102); Monocytes # 0.7 10*3/uL (0.11-0.8); Monocytes % 7.6 % (1.7-12.7); Neutrophils # 6.2 10*3/uL (1.4-7.4); Neutrophils % 69.4 % (38.7-73.9); Platelet Count 215 T/CUMM (130-400); Red Blood Count 3.28 MC/CUMM (3.8-5.5); Red Cell Distribution Width 13.4 % (9.3-17.3); White Blood Count 8.9 T/CUMM (4-12)
[2017-10-05 05:23] LABS: Calcium 8.1 MG/DL (8.5-10.1); Osmolality,Calculated 284.3 MOS/KG (273-304)
[2017-10-05] MEDS: MORPHINE 2 MG/1 ML SYRINGE IV PRN ×3 (06:34→21:30)
[2017-10-05] MEDS: PANTOPRAZOLE 40 MG VIAL IV SCH ×2 (08:31→20:24)
[2017-10-05] MEDS: POTASSIUM CHLORIDE 20 MEQ TABLET PO SCH (08:32)
[2017-10-05] MEDS: METOPROLOL TARTRATE 25 MG TABLET PO SCH ×2 (08:32→20:26)
[2017-10-05] MEDS: MONTELUKAST 10 MG TABLET PO SCH (08:32)
[2017-10-05] MEDS: HALOPERIDOL 5 MG/ML AMP IV SCH ×2 (08:32→20:24)
[2017-10-05] MEDS: ASPIRIN CHEW 81 MG TABLET PO SCH (08:32)
[2017-10-05] MEDS: oxyCODONE/ACETAMINOPHEN 5-325 MG TABLET PO SCH ×2 (08:33→20:24)
[2017-10-05] MEDS: DILTIAZEM 30 MG TABLET PO SCH ×3 (12:48→20:25)
[2017-10-06] MEDS: hydrALAZINE 20 MG/1 ML VIAL IV PRN (00:29)
[2017-10-06] MEDS: LEVOFLOXACIN INJ 750 MG in PREMIX 1 EACH IV SCH (00:29)
[2017-10-06] MEDS: INSULIN REGULAR 100 UNIT/ML SUBCUT SCH ×4 (00:52→18:26)
[2017-10-06] MEDS: MORPHINE 2 MG/1 ML SYRINGE IV PRN (02:00)
[2017-10-06] MEDS: LORazepam 2 MG/1 ML VIAL IV PRN (03:00)
[2017-10-06] MEDS: DILTIAZEM INJ 100 MG in SODIUM CHLORIDE 0.9% 100 ML IV SCH ×2 (03:00→04:07)
[2017-10-06] MEDS: cefTRIAXone 2,000 MG in SYRINGE 1 EACH IV SCH (03:17)
[2017-10-06 03:36] LABS: ABG Base Excess 5.8 MMOL/L (-2.5-2.5); ABG HCO3 29.7 MMOL/L (20-26); ABG Oxygen Saturation 98.5 % (95-100); ABG PCO2 40.5 MM HG (35-48); ABG PH 7.476 (7.35-7.45); ABG TCO2 26.9 MMOL/L (23-27); Allen Test Positive; Pt O2 Delivery Device Ventilator
[2017-10-06] MEDS: PROPOFOL 1,000 MG/100 ML BOTTLE IV SCH ×5 (04:03→21:18)
[2017-10-06 05:33] LABS: Magnesium 1.8 MG/DL (1.8-2.4); Osmolality,Calculated 277.7 MOS/KG (273-304); Potassium 3.9 MMOL/L (3.5-5.1)
[2017-10-06 05:43] LABS: Basophils # 0.1 10*3/uL (0.0-0.2); Basophils % 0.4 % (0.0-0.8); Eosinophils # 0.4 10*3/uL (0.0-0.87); Eosinophils % 2.9 % (0.00-10.9); Hematocrit 30.7 VOL% (35.7-47.0); Hemoglobin 10.1 GM/DL (12.0-16.0); Immature Granulocytes % 0.6 %; Immature Granulocytes Absolute 0.07 #; Lymphocytes # 1.8 10*3/uL (1.4-4.0); Lymphocytes % 14.4 % (21.3-54.2); Mean Corpuscular HGB Conc 32.9 GM/DL (32-36); Mean Corpuscular Hemoglobin 29 PG (27-34); Mean Corpuscular Volume 87.5 FL (87-102); Mean Platelet Volume 12.3 FL (9.6-12.0); Monocytes # 1.1 10*3/uL (0.11-0.8); Monocytes % 8.8 % (1.7-12.7); Neutrophils # 9.2 10*3/uL (1.4-7.4); Neutrophils % 72.9 % (38.7-73.9); Platelet Count 281 T/CUMM (130-400); Red Blood Count 3.51 MC/CUMM (3.8-5.5); Red Cell Distribution Width 13.6 % (9.3-17.3); White Blood Count 12.5 T/CUMM (4-12)
[2017-10-06 05:44] LABS: Magnesium 1.9 MG/DL (1.8-2.4); Prealbumin 17.7 MG/DL (20-40)
[2017-10-06] MEDS: POTASSIUM CHLORIDE RIDER 10 MEQ in PREMIX 1 EACH IV PRN (06:34)
[2017-10-06] MEDS: PANTOPRAZOLE 40 MG VIAL IV SCH ×2 (09:15→20:24)
[2017-10-06] MEDS: HALOPERIDOL 5 MG/ML AMP IV SCH ×2 (09:15→20:24)
[2017-10-06] MEDS: METOPROLOL TARTRATE 25 MG TABLET PO SCH (09:16)
[2017-10-06] MEDS: ASPIRIN CHEW 81 MG TABLET PO SCH (09:16)
[2017-10-06] MEDS: DILTIAZEM 30 MG TABLET PO SCH (09:16)
[2017-10-06] MEDS: MONTELUKAST 10 MG TABLET PO SCH (09:16)
[2017-10-06] MEDS: oxyCODONE/ACETAMINOPHEN 5-325 MG TABLET PO SCH ×2 (09:16→20:25)
[2017-10-06] MEDS: POTASSIUM CHLORIDE 20 MEQ TABLET PO SCH (09:17)
[2017-10-06] MEDS ORDERED: METOPROLOL TARTRATE 50 MG TABLET PO SCH (09:54)
[2017-10-06] MEDS: LISINOPRIL 2.5 MG TABLET PO SCH (18:26)
[2017-10-07] MEDS: LEVOFLOXACIN INJ 750 MG in PREMIX 1 EACH IV SCH ×2 (01:25→23:23)
[2017-10-07] MEDS: INSULIN REGULAR 100 UNIT/ML SUBCUT SCH ×5 (02:13→23:33)
[2017-10-07] MEDS: cefTRIAXone 2,000 MG in SYRINGE 1 EACH IV SCH (02:53)
[2017-10-07 03:12] LABS: ABG Base Excess 6.9 MMOL/L (-2.5-2.5); ABG HCO3 31.2 MMOL/L (20-26); ABG Oxygen Saturation 97.8 % (95-100); ABG PCO2 43.1 MM HG (35-48); ABG PH 7.477 (7.35-7.45); ABG TCO2 32.5 MMOL/L (23-27); Allen Test Positive; Pt O2 Delivery Device Ventilator
[2017-10-07 05:38] LABS: Basophils # 0.1 10*3/uL (0.0-0.2); Basophils % 0.5 % (0.0-0.8); Eosinophils # 0.3 10*3/uL (0.0-0.87); Eosinophils % 2.7 % (0.00-10.9); Hematocrit 29.6 VOL% (35.7-47.0); Hemoglobin 9.6 GM/DL (12.0-16.0); Immature Granulocytes % 0.5 %; Immature Granulocytes Absolute 0.05 #; Lymphocytes # 1.6 10*3/uL (1.4-4.0); Lymphocytes % 15.9 % (21.3-54.2); Mean Corpuscular HGB Conc 32.4 GM/DL (32-36); Mean Corpuscular Hemoglobin 29 PG (27-34); Mean Corpuscular Volume 88.4 FL (87-102); Mean Platelet Volume 12.3 FL (9.6-12.0); Monocytes # 0.8 10*3/uL (0.11-0.8); Monocytes % 7.8 % (1.7-12.7); Neutrophils # 7.2 10*3/uL (1.4-7.4); Neutrophils % 72.6 % (38.7-73.9); Platelet Count 260 T/CUMM (130-400); Red Blood Count 3.35 MC/CUMM (3.8-5.5); Red Cell Distribution Width 13.6 % (9.3-17.3)
[2017-10-07 06:22] LABS: Calcium 8.6 MG/DL (8.5-10.1); Osmolality,Calculated 276.7 MOS/KG (273-304); Potassium 4.1 MMOL/L (3.5-5.1)
[2017-10-07] MEDS: POTASSIUM CHLORIDE 20 MEQ TABLET PO SCH (08:57)
[2017-10-07] MEDS: MONTELUKAST 10 MG TABLET PO SCH (08:57)
[2017-10-07] MEDS: HALOPERIDOL 5 MG/ML AMP IV SCH ×2 (08:57→20:44)
[2017-10-07] MEDS: LISINOPRIL 2.5 MG TABLET PO SCH (08:57)
[2017-10-07] MEDS: oxyCODONE/ACETAMINOPHEN 5-325 MG TABLET PO SCH ×2 (08:57→20:44)
[2017-10-07] MEDS: PANTOPRAZOLE 40 MG VIAL IV SCH ×2 (08:58→20:44)
[2017-10-07] MEDS: METOPROLOL TARTRATE 100 MG TABLET PO SCH ×2 (08:58→20:44)
[2017-10-07] MEDS ORDERED: LIDOCAINE 2%/EPI 20 ML VIAL ONE (10:13)
[2017-10-07] MEDS: hydrALAZINE 20 MG/1 ML VIAL IV PRN (11:13)
[2017-10-07] MEDS: ASPIRIN CHEW 81 MG TABLET PO SCH (11:13)
[2017-10-07] MEDS: MORPHINE 2 MG/1 ML SYRINGE IV PRN (12:46)
[2017-10-07] MEDS: LORazepam 2 MG/1 ML VIAL IV PRN (12:47)
[2017-10-07] MEDS: PROPOFOL 1,000 MG/100 ML BOTTLE IV SCH (22:22)
[2017-10-08] MEDS: cefTRIAXone 2,000 MG in SYRINGE 1 EACH IV SCH (01:20)
[2017-10-08] MEDS: LORazepam 2 MG/1 ML VIAL IV PRN ×2 (01:28→16:53)
[2017-10-08 01:59] LABS: Basophils # 0.1 10*3/uL (0.0-0.2); Basophils % 0.5 % (0.0-0.8); Eosinophils # 0.3 10*3/uL (0.0-0.87); Eosinophils % 1.8 % (0.00-10.9); Hemoglobin 10.2 GM/DL (12.0-16.0); Immature Granulocytes % 0.5 %; Immature Granulocytes Absolute 0.07 #; Lymphocytes # 2.2 10*3/uL (1.4-4.0); Lymphocytes % 15.8 % (21.3-54.2); Mean Corpuscular HGB Conc 32.9 GM/DL (32-36); Mean Corpuscular Hemoglobin 29 PG (27-34); Mean Corpuscular Volume 88.3 FL (87-102); Mean Platelet Volume 12.2 FL (9.6-12.0); Monocytes # 1.4 10*3/uL (0.11-0.8); Neutrophils # 9.7 10*3/uL (1.4-7.4); Neutrophils % 71.4 % (38.7-73.9); Platelet Count 291 T/CUMM (130-400); Red Blood Count 3.51 MC/CUMM (3.8-5.5); Red Cell Distribution Width 13.9 % (9.3-17.3); White Blood Count 13.6 T/CUMM (4-12)
[2017-10-08 02:06] LABS: Calcium 8.6 MG/DL (8.5-10.1); Magnesium 1.9 MG/DL (1.8-2.4); Osmolality,Calculated 281.5 MOS/KG (273-304); Potassium 4.1 MMOL/L (3.5-5.1)
[2017-10-08 04:06] LABS: ABG Base Excess 6.5 MMOL/L (-2.5-2.5); ABG HCO3 30.5 MMOL/L (20-26); ABG Oxygen Saturation 98.1 % (95-100); ABG PCO2 41.5 MM HG (35-48); ABG PH 7.484 (7.35-7.45); ABG PO2 117.6 MM HG (80-95); ABG TCO2 31.8 MMOL/L (23-27); Allen Test Positive; Pt O2 Delivery Device Ventilator
[2017-10-08] MEDS: INSULIN REGULAR 100 UNIT/ML SUBCUT SCH ×3 (06:03→18:44)
[2017-10-08 07:45] LABS: ABG Base Excess 5.6 MMOL/L (-2.5-2.5); ABG HCO3 29.5 MMOL/L (20-26); ABG PCO2 38.1 MM HG (35-48); ABG PH 7.492 (7.35-7.45); ABG PO2 94.4 MM HG (80-95); ABG TCO2 26.4 MMOL/L (23-27)
[2017-10-08] MEDS: PANTOPRAZOLE 40 MG VIAL IV SCH ×2 (08:58→21:38)
[2017-10-08] MEDS: oxyCODONE/ACETAMINOPHEN 5-325 MG TABLET PO SCH ×2 (08:59→22:34)
[2017-10-08] MEDS: MONTELUKAST 10 MG TABLET PO SCH (08:59)
[2017-10-08] MEDS: HALOPERIDOL 5 MG/ML AMP IV SCH ×2 (08:59→22:33)
[2017-10-08] MEDS: POTASSIUM CHLORIDE 20 MEQ TABLET PO SCH (09:00)
[2017-10-08] MEDS: LISINOPRIL 2.5 MG TABLET PO SCH (09:00)
[2017-10-08] MEDS: METOPROLOL TARTRATE 100 MG TABLET PO SCH ×2 (09:00→21:38)
[2017-10-08] MEDS: ASPIRIN CHEW 81 MG TABLET PO SCH (09:00)
[2017-10-08] MEDS ORDERED: LISINOPRIL 2.5 MG TABLET PO ONE (11:17)
[2017-10-08] MEDS ORDERED: DIGOXIN 0.5 MG/2 ML AMP IV ONE ×2 (11:19→18:32)
[2017-10-08] MEDS: ENOXAPARIN 40 MG/0.4 ML SYRINGE SUBCUT SCH (12:09)
[2017-10-08] MEDS: hydrALAZINE 20 MG/1 ML VIAL IV PRN (16:05)
[2017-10-08] MEDS: MORPHINE 2 MG/1 ML SYRINGE IV PRN (17:23)
[2017-10-08] MEDS: ACETAMINOPHEN 325 MG/10.15 ML UDCUP PO PRN (18:08)
[2017-10-08] MEDS ORDERED: LABETALOL 20 MG/4 ML SYRINGE IV PRN (18:34)
[2017-10-09] MEDS ORDERED: DIGOXIN 0.5 MG/2 ML AMP IV ONE
[2017-10-09] MEDS: LEVOFLOXACIN INJ 750 MG in PREMIX 1 EACH IV SCH (00:11)
[2017-10-09] MEDS: INSULIN REGULAR 100 UNIT/ML SUBCUT SCH ×3 (00:12→12:54)
[2017-10-09] MEDS: cefTRIAXone 2,000 MG in SYRINGE 1 EACH IV SCH (02:27)
[2017-10-09] MEDS: hydrALAZINE 20 MG/1 ML VIAL IV PRN (02:28)
[2017-10-09 02:59] LABS: ABG Base Excess 4.9 MMOL/L (-2.5-2.5); ABG HCO3 28.8 MMOL/L (20-26); ABG Oxygen Saturation 95.6 % (95-100); ABG PCO2 34.9 MM HG (35-48); ABG PH 7.511 (7.35-7.45); ABG PO2 74.7 MM HG (80-95); ABG TCO2 24.9 MMOL/L (23-27); Allen Test Positive; Pt O2 Delivery Device Venturi Mask
[2017-10-09 04:45] LABS: Basophils # 0.1 10*3/uL (0.0-0.2); Basophils % 0.7 % (0.0-0.8); Eosinophils # 0.1 10*3/uL (0.0-0.87); Eosinophils % 0.4 % (0.00-10.9); Hematocrit 33.3 VOL% (35.7-47.0); Hemoglobin 10.9 GM/DL (12.0-16.0); Immature Granulocytes % 0.5 %; Immature Granulocytes Absolute 0.08 #; Lymphocytes # 1.7 10*3/uL (1.4-4.0); Lymphocytes % 10.7 % (21.3-54.2); Mean Corpuscular HGB Conc 32.7 GM/DL (32-36); Mean Corpuscular Hemoglobin 28 PG (27-34); Mean Corpuscular Volume 86.7 FL (87-102); Mean Platelet Volume 12.5 FL (9.6-12.0); Monocytes # 1.4 10*3/uL (0.11-0.8); Monocytes % 8.7 % (1.7-12.7); Neutrophils # 12.3 10*3/uL (1.4-7.4); Platelet Count 342 T/CUMM (130-400); Red Blood Count 3.84 MC/CUMM (3.8-5.5); Red Cell Distribution Width 13.7 % (9.3-17.3); White Blood Count 15.6 T/CUMM (4-12)
[2017-10-09 05:23] LABS: Calcium 8.9 MG/DL (8.5-10.1); Magnesium 1.8 MG/DL (1.8-2.4); Osmolality,Calculated 275.7 MOS/KG (273-304); Potassium 4.4 MMOL/L (3.5-5.1)
[2017-10-09] MEDS ORDERED: LISINOPRIL 5 MG TABLET PO SCH (09:00)
[2017-10-09] MEDS: oxyCODONE/ACETAMINOPHEN 5-325 MG TABLET PO SCH (09:09)
[2017-10-09] MEDS: POTASSIUM CHLORIDE 20 MEQ TABLET PO SCH (09:09)
[2017-10-09] MEDS: ASPIRIN CHEW 81 MG TABLET PO SCH (09:09)
[2017-10-09] MEDS: MONTELUKAST 10 MG TABLET PO SCH (09:09)
[2017-10-09] MEDS: HALOPERIDOL 5 MG/ML AMP IV SCH ×2 (09:10→10:44)
[2017-10-09] MEDS: PANTOPRAZOLE 40 MG VIAL IV SCH (09:10)
[2017-10-09] MEDS: METOPROLOL TARTRATE 100 MG TABLET PO SCH (09:11)
[2017-10-09] MEDS: ENOXAPARIN 40 MG/0.4 ML SYRINGE SUBCUT SCH (13:41)
[2017-10-09] MEDS: DILTIAZEM CD 120 MG CAPSULE PO SCH ×2 (13:42→13:55)
[2017-10-09] MEDS ORDERED: DILTIAZEM 60 MG TABLET PO SCH (14:00)
[2017-10-09 15:37] VITALS: BP 145/78
== END 2017-10-09 18:22 | DRG 981 ==
LOC: EDUNIT# → EDBD → N.ED 18:21 → SUATTDRO 21:29 → N.EDINP 21:29 → N.ICU 21:57
PROVIDERS: ADMIT Internal Medicine Infectious Disease; ATTEND Hospitalist